=== PATIENT | male | born 1960 | race Caucasian/White ===

== ENCOUNTER 2016-11-11 09:16 | Emergency (ER) | payer SELFPAY ==
--- NOTE | 2016-11-11 11:04 | UC ---
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 - History of Current Complaint Chief Complaint: UCAbdominalPain Stated Complaint: ABD PAIN Time Seen by Provider: 11/11/16 10:56 Hx Obtained From: Patient Onset/Duration: Gradual Onset Timing: Intermittent Episodes Lasting: - lifting and twisting mvements Severity Initially: Mild Severity Currently: None Location: Other - umbillical Radiates: No Character: Aching - at work with lifting Aggravating Factor(s):: Movement Alleviating Factor(s): Rest Associated Signs And Symptoms: Positive: Negative - Allergies/Home Medications Allergies/Adverse Reactions: Allergies Allergy/AdvReac Type Severity Reaction Status Date / Time No Known Allergies Allergy Verified 01/24/12 07:47 PMH/Surg Hx/FS Hx/Imm Hx Previously Healthy: Yes - Surgical History Surgical History: None - Family History Known Family History: Positive: None Family History: no reported cardiovascular issues in family lineage - Social History Occupation: Employed Full-time Lives: With Family Alcohol Use: Rare Substance Use Type: None Smoking Status (MU): Former Smoker Review of Systems Constitutional: Negative Skin: Negative Eyes: Negative ENT: Negative Respiratory: Negative Cardiovascular: Negative Gastrointestinal: Negative Genitourinary: Negative Motor: Negative Neurovascular: Negative Musculoskeletal: Negative Neurological: Negative Psychological: Negative All Other Systems Reviewed And Are Negative: Yes Physical Exam Triage Information Reviewed: Yes Appearance: Well-Appearing, No Pain Distress, Well-Nourished Vital Signs: Initial Vital Signs Temp 99.3 F 11/11/16 09:24 Pulse 97 11/11/16 09:24 Resp 16 11/11/16 09:24 BP 143/90 11/11/16 09:24 Pulse Ox 100 11/11/16 09:24 Vital Signs Reviewed: Yes Eye Exam: Normal Eyes: Positive: Conjunctiva Clear ENT Exam: Normal ENT: Positive: Normal ENT inspection, Hearing grossly normal, TMs normal. Negative: Nasal congestion, Nasal drainage, Trismus, Muffled/hoarse voice Dental Exam: Normal Neck exam: Normal Neck: Positive: Supple, Nontender, No Lymphadenopathy Respiratory Exam: Normal Respiratory: Positive: Chest non-tender, Lungs clear, Normal breath sounds, No respiratory distress, No accessory muscle use Cardiovascular Exam: Normal Cardiovascular: Positive: RRR, No Murmur, Pulses Normal, Brisk Capillary Refill Abdominal Exam: Normal Abdomen Description: Positive: Nontender, No Organomegaly, Soft, Other: - small umbillical hernia Bowel Sounds: Positive: Present Musculoskeletal Exam: Normal Musculoskeletal: Positive: Strength Intact, ROM Intact, No Edema Neurological Exam: Normal Neurological: Positive: Alert, Muscle Tone Normal Psychological Exam: Normal Skin Exam: Normal Abd Pain Male Course/Dx - Course Course Of Treatment: follow with surgeon for hernia and primary care for blood pressure, avoid lifting or movements that put stress on abd. wall - Differential Dx/Clinical Impression Differential Diagnosis/HQI/PQRI: Ischemic Bowel, Other - umbilical hernia Provider Diagnoses: Umbilical hernia, high blood pressure without diagnosis of hypertension Discharge - Discharge Plan Condition: Stable Disposition: HOME Patient Education Materials: Umbilical Hernia (ED), DASH Eating Plan (ED), Hypertension (ED) Forms: *Work Release Referrals: [facility]IAN REFERRAL [Outside] - 2 Weeks Raghavendra Wilson MD [Medical Doctor] - 3 Days
[2016-11-11 11:24] VITALS: BP 130/96
== END 2016-11-11 11:24 | disposition home or self-care (01) ==
LOC: UCEAST 09:16
DX: K42.9 Umbilical hernia without obstruction or gangrene (principal); R03.0 Elevated blood-pressure reading, without diagnosis of hypertension; Z87.891 Personal history of nicotine dependence
CPT/HCPCS: 99202; G0463

== ENCOUNTER 2017-09-19 07:13 | Emergency (ER) | payer SELFPAY ==
[2017-09-19 07:25] VITALS: BP 143/95
--- NOTE | 2017-09-19 08:07 | UC ---
General HPI - HPI Summary HPI Summary: 57 yo c/o progressive back pain since yesterday afternoon. Stood up from couch , and felt pain in R lower back. No p/d/w. No b/b dysfunction. 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 Has not had sign sx since then. No fever / chills. No rash. Does not have a pcp yet. Declines imaging. - History of Current Complaint Chief Complaint: UCBackPain Stated Complaint: BACK PAIN Time Seen by Provider: 09/19/17 07:48 Hx Obtained From: Patient Pain Intensity: 8 - Allergy/Home Medications Allergies/Adverse Reactions: Allergies Allergy/AdvReac Type Severity Reaction Status Date / Time No Known Allergies Allergy Verified 09/19/17 07:26 PMH/Surg Hx/FS Hx/Imm Hx Previously Healthy: Yes - Surgical History Surgical History: Yes Surgery Procedure, Year, and Place: cyst removed from neck area - Family History Known Family History: Positive: None Family History: no reported cardiovascular issues in family lineage - Social History Alcohol Use: Rare Substance Use Type: None Smoking Status (MU): Former Smoker Review of Systems Constitutional: Negative Skin: Negative Eyes: Negative ENT: Negative Respiratory: Negative Cardiovascular: Negative Gastrointestinal: Negative Genitourinary: Negative Motor: Other - see hpi Neurovascular: Other - see hpi Musculoskeletal: Arthralgia Neurological: Other - see hpi Psychological: Negative Is Patient Immunocompromised?: No All Other Systems Reviewed And Are Negative: Yes Physical Exam Triage Information Reviewed: Yes Appearance: Well-Nourished Vital Signs: Initial Vital Signs Temp 97 F 09/19/17 07:22 Pulse 97 09/19/17 07:22 Resp 16 09/19/17 07:22 BP 143/95 09/19/17 07:22 Pulse Ox 99 09/19/17 07:22 Vital Signs Reviewed: Yes Eye Exam: Normal ENT Exam: Normal Neck exam: Normal - no c/o Respiratory Exam: Normal Respiratory: Positive: Chest non-tender, Lungs clear, Normal breath sounds, No respiratory distress Cardiovascular Exam: Normal Cardiovascular: Positive: RRR, No Murmur, Pulses Normal Abdominal Exam: Normal Abdomen Description: Positive: Nontender Musculoskeletal Exam: Other - tender R lower back lower lumber / upper sacrum. No point tender bone. + spasm. Able to ambulate, slowly. DTR 1+ pat and R Neurological Exam: Normal Psychological Exam: Normal - conversing easily and appropritately Skin Exam: Normal Course/Dx - Course Course Of Treatment: Declines imaging. Would appreciate muscle relax. - Differential Dx - Multi-Symptom Provider Diagnoses: Acute low back strain Discharge - Sign-Out/Discharge Documenting (check all that apply): Discharge/Admit/Transfer - Discharge Plan Condition: Stable Disposition: HOME Patient Education Materials: Low Back Strain (ED) Forms: *Work Release Referrals: No Primary Care Phys,NOPCP [Primary Care Provider] - [facility] [place] [facility]IAN REFERRAL [Outside] Additional Instructions: Follow up primary care physician as soon as you are able. Seek medical attention for worse or new problems in the meantime. - Billing Disposition and Condition Condition: STABLE Disposition: Home
== END 2017-09-19 08:12 | disposition home or self-care (01) ==
LOC: UCEAST 07:13
DX: S39.012A Strain of muscle, fascia and tendon of lower back, initial encounter (principal); X58.XXXA Exposure to other specified factors, initial encounter; Y93.9 Activity, unspecified; Y92.9 Unspecified place or not applicable; Z87.891 Personal history of nicotine dependence
CPT/HCPCS: 99212; G0463

== ENCOUNTER 2018-05-16 10:13 | Emergency (ER) | payer OTHER ==
--- NOTE | 2018-05-16 10:32 | UC ---
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 He is not having any sciatica. Has no bowel or bladder dysfunction. He states he has a history of herniated disks. His been taking ibuprofen. States that he has been able to lift in bed with mild to moderate pain. He states that he is able to resume full duty. - History of Current Complaint Stated Complaint: BACK INJURY Time Seen by Provider: 05/16/18 10:32 Hx Obtained From: Patient Onset/Duration: Sudden Onset, Lasting Weeks Timing: Constant Severity Initially: Moderate Severity Currently: Moderate Pain Intensity: 4 Back Pain: Is Discrete @ - see image Character: Dull, Aching, Throbbing Aggravating Factor(s): Movement, Bending Alleviating Factor(s): Rest Associated Signs And Symptoms: Positive: Negative Related History: Occupational Injury, Previous Back Injury - Allergies/Home Medications Allergies/Adverse Reactions: Allergies Allergy/AdvReac Type Severity Reaction Status Date / Time No Known Allergies Allergy Verified 05/16/18 10:31 PMH/Surg Hx/FS Hx/Imm Hx Previously Healthy: Yes - Surgical History Surgical History: Yes Surgery Procedure, Year, and Place: cyst removed from neck area - Family History Known Family History: Positive: Hypertension Family History: no reported cardiovascular issues in family lineage - Social History Alcohol Use: Rare Substance Use Type: None Smoking Status (MU): Former Smoker Review of Systems All Other Systems Reviewed And Are Negative: Yes Constitutional: Positive: Negative Skin: Positive: Negative Eyes: Positive: Negative ENT: Positive: Negative Respiratory: Positive: Negative Cardiovascular: Positive: Negative Gastrointestinal: Positive: Negative Genitourinary: Positive: Negative Motor: Positive: Negative Neurovascular: Positive: Negative Musculoskeletal: Positive: Myalgia Neurological: Positive: Negative Psychological: Positive: Negative Physical Exam Triage Information Reviewed: Yes Appearance: Well-Appearing, No Pain Distress, Well-Nourished Vital Signs Reviewed: Yes Eyes: Positive: Conjunctiva Clear ENT: Positive: Hearing grossly normal. Negative: Nasal congestion, Nasal drainage, Trismus, Muffled voice, Hoarse voice Neck: Positive: Supple, Nontender, No Lymphadenopathy Respiratory: Positive: Lungs clear, Normal breath sounds, No respiratory distress Cardiovascular: Positive: RRR, No Murmur Neurological: Positive: Alert, Other: - (-) SLR Psychological Exam: Normal Skin Exam: Normal Back Pain Course/Dx - Differential Dx/Diagnosis Provider Diagnosis: Acute lumbar myofascial strain Discharge - Sign-Out/Discharge Documenting (check all that apply): Patient Departure All imaging exams completed and their final reports reviewed: No Studies - Discharge Plan Condition: Stable Disposition: HOME Patient Education Materials: Low Back Strain (ED) Forms: *Work Release Referrals: [facility] [place] [facility] REFERR[facility] [Outside] - 2 Weeks (your blood pressure here was high ( 142/98). You need to find a MD to get it follow in 2-8 weeks) Kurt Delaney MD [Medical Doctor] - 2 Weeks (Recheck in 2 weeks if back not back to normal) Additional Instructions: advil or aleve - Billing Disposition and Condition Condition: STABLE Disposition: Home
[2018-05-16 10:39] VITALS: BP 142/98
== END 2018-05-16 11:04 | disposition home or self-care (01) ==
LOC: UCEAST 10:13
DX: S39.012A Strain of muscle, fascia and tendon of lower back, initial encounter (principal); Z87.39 Personal history of other diseases of the musculoskeletal system and connective tissue; Z87.891 Personal history of nicotine dependence; X58.XXXA Exposure to other specified factors, initial encounter; Y93.H1 Activity, digging, shoveling and raking; Y92.9 Unspecified place or not applicable
CPT/HCPCS: 99211; G0463

== ENCOUNTER → 2018-09-05 06:09 | Emergency (ER) | payer BC, OTHER ==
--- NOTE | 2018-09-05 06:37 | ED ---
Neck Pain - HPI Summary HPI Summary: 58 year old male presents with neck pain since last night. He states he was sitting on the couch watching tv and develop spasm on the right side of his neck. He states that is felt tight. he denies any fevers or chills. He states he took some Tylenol and feel asleep and the pain is pretty much gone. He states he is here for muscle relaxers and a work note. He denies any chest and shortness breath. Denies any headache. No change in vision. He states he has a history of neck pain in this location. denies any midline tenderness. Denies any injury. has full ROM of his neck now. work as a school janitor. - History of Current Complaint Chief Complaint: EDNeckComplaint Stated Complaint: NECK PAIN PER PT Time Seen by Provider: 09/05/18 06:28 Pain Intensity: 6 - Allergies/Home Medications Allergies/Adverse Reactions: Allergies Allergy/AdvReac Type Severity Reaction Status Date / Time No Known Allergies Allergy Verified 09/05/18 06:12 PMH/Surg Hx/FS Hx/Imm Hx Endocrine/Hematology History: Denies: Hx Anticoagulant Therapy Respiratory History: Denies: Hx Asthma - Surgical History Surgery Procedure, Year, and Place: cyst removed from neck area Infectious Disease History: No Infectious Disease History: Denies: Hx Clostridium Difficile, Hx Hepatitis, Hx Human Immunodeficiency Virus (HIV), Hx of Known/Suspected MRSA, Hx Shingles, Hx Tuberculosis, Hx Known/ Suspected VRE, Hx Known/Suspected VRSA, History Other Infectious Disease, Traveled Outside the [place] in Last 30 Days - Family History Known Family History: Positive: None, Hypertension Family History: no reported cardiovascular issues in family lineage - Social History Alcohol Use: Rare Substance Use Type: Reports: None Smoking Status (MU): Former Smoker Review of Systems Negative: Fever Negative: Chest Pain Negative: Shortness Of Breath Positive: Myalgia - neck pain All Other Systems Reviewed And Are Negative: Yes Physical Exam Triage Information Reviewed: Yes Vital Signs On Initial Exam: Initial Vitals Temp Pulse Resp BP Pulse Ox 96.7 F 73 16 150/83 95 09/05/18 06:10 09/05/18 06:10 09/05/18 06:10 09/05/18 06:10 09/05/18 06:10 Vital Signs Reviewed: Yes Appearance: Positive: Well-Appearing Skin: Positive: Warm, Dry Head/Face: Positive: Normal Head/Face Inspection Eyes: Positive: Normal, Conjunctiva Clear ENT: Positive: Pharynx normal Respiratory/Lung Sounds: Positive: Clear to Auscultation, Breath Sounds Present Cardiovascular: Positive: Normal, RRR Musculoskeletal: Positive: Strength/ROM Intact - neck, Other - no midline tenderness, good strength upper arms, good pulses Neurological: Positive: Normal Psychiatric: Positive: Normal Diagnostics - Vital Signs Vital Signs Temp Pulse Resp BP Pulse Ox 09/05/18 06:10 96.7 F 73 16 150/83 95 - Laboratory Lab Statement: Any lab studies that have been ordered have been reviewed, and results considered in the medical decision making process. Neck Course/Dx - Course Course Of Treatment: 58 year old male presents with neck pain since last night. He states he was sitting on the couch watching tv and develop spasm on the right side of his neck. He states that is felt tight. he denies any fevers or chills. He states he took some Tylenol and feel asleep and the pain is pretty much gone. He states he is here for muscle relaxers and a work note. He denies any chest and shortness breath. Denies any headache. No change in vision. He states he has a history of neck pain in this location. denies any midline tenderness. Denies any injury. has full ROM of his neck now. on exam tenderness over sides of neck. full ROM. neurovascular intact. patient declined any imaging. wants to try short course of muscle relaxers and will establish care with primary to follow up. patient understand and agrees with plan. - Diagnoses Differential Dx/HQI/PQRI: Positive: Sprain, Strain, Torticollis Provider Diagnoses: Neck pain Discharge - Sign-Out/Discharge Documenting (check all that apply): Patient Departure Patient Received Moderate/Deep Sedation with Procedure: No - Discharge Plan Condition: Good Disposition: HOME Prescriptions: Cyclobenzaprine TAB* [Flexeril 10 MG TAB*] 10 mg PO BID PRN #10 tab PRN Reason: Pain Patient Education Materials: Neck Pain (ED) Forms: *Work Release Referrals: [facility] [place] [facility] [Outside] Additional Instructions: Take muscle relaxers twice a day, start with at night because can make you drowsy Use Tylenol for pain every 6 hours ice/heat area, move as much as possible establish care with primary to follow up Return to ED if develop any new or worsening symptoms - Billing Disposition and Condition Condition: GOOD Disposition: Home
[2018-09-05 06:51] VITALS: BP 153/73
== END | disposition home or self-care (01) ==
LOC: ED 06:09
DX: M54.2 Cervicalgia (principal)
CPT/HCPCS: 99282

== ENCOUNTER 2019-02-11 08:10 | Emergency (ER) | payer BC ==
[2019-02-11 08:17] VITALS: BP 132/85
[2019-02-11 08:37] LABS: Influenza A Molecular NEGATIVE (Negative); Influenza B Molecular NEGATIVE (Negative)
--- NOTE | 2019-02-11 08:56 | UC ---
Throat Pain/Nasal Jeffery HPI - HPI Summary HPI Summary: 58-year-old male comes in with a chief complaint of upper respiratory tract infection symptoms for 3 days. Patient with runny nose cough sore throats body aches. He is band taking [id number] medications which helped some with the symptoms but overall he is getting worse and he feels very tired and fatigued. He tried to work today and he felt too sick to be able to work. Denies any chest congestion or shortness of breath. - History of Current Complaint Chief Complaint: UCGeneralIllness Stated Complaint: COLD SWEATS, HEADACHE, AND STUFFINESS Time Seen by Provider: 02/11/19 08:27 Pain Intensity: 5 - Allergies/Home Medications Allergies/Adverse Reactions: Allergies Allergy/AdvReac Type Severity Reaction Status Date / Time No Known Allergies Allergy Verified 02/11/19 08:17 PMH/Surg Hx/FS Hx/Imm Hx Previously Healthy: Yes Other History Of: Negative For: Anticoagulant Therapy - Surgical History Surgical History: Yes Surgery Procedure, Year, and Place: cyst removed from neck area - Family History Known Family History: Positive: None, Hypertension Family History: no reported cardiovascular issues in family lineage - Social History Alcohol Use: Rare Substance Use Type: None Smoking Status (MU): Former Smoker Review of Systems All Other Systems Reviewed And Are Negative: Yes Constitutional: Positive: Fatigue, Other - SEE HPI Skin: Positive: Negative Eyes: Positive: Blurred Vision ENT: Positive: Sore Throat, Ear Ache, Nasal Discharge, Sinus Congestion Respiratory: Positive: Negative Cardiovascular: Positive: Negative Gastrointestinal: Positive: Negative Motor: Positive: Negative Neurovascular: Positive: Negative Musculoskeletal: Positive: Negative Neurological: Positive: Negative Psychological: Positive: Negative Is Patient Immunocompromised?: No Physical Exam Triage Information Reviewed: Yes Appearance: No Pain Distress, Well-Nourished, Ill-Appearing - MILD Vital Signs: Initial Vital Signs Temp 98.4 F 02/11/19 08:11 Pulse 100 02/11/19 08:11 Resp 20 02/11/19 08:11 BP 132/85 02/11/19 08:11 Pulse Ox 98 02/11/19 08:11 Vital Signs Reviewed: Yes Eye Exam: Normal Eyes: Positive: Conjunctiva Clear ENT: Positive: Pharyngeal erythema, Nasal congestion, Nasal drainage, TMs normal Neck: Positive: Supple Respiratory: Positive: Lungs clear, Normal breath sounds, No respiratory distress Cardiovascular: Positive: RRR Musculoskeletal: Positive: Strength Intact, ROM Intact Neurological: Positive: Alert, Muscle Tone Normal Psychological: Positive: Age Appropriate Behavior Skin Exam: Normal Throat Pain/Nasal Course/Dx - Course Course Of Treatment: DISCUSSED VIRAL VERSES BACTERIAL INFECTIONS AND THE ROLE OF ANTIBIOTICS. THE PATIENT PREFERS TO BE ON ANTIBIOTICS AT THIS TIME. - Differential Dx/Diagnosis Provider Diagnosis: Upper respiratory infection Discharge ED - Sign-Out/Discharge Documenting (check all that apply): Patient Departure All imaging exams completed and their final reports reviewed: No Studies - Discharge Plan Condition: Stable Disposition: HOME Prescriptions: Amoxicillin PO (*) [Amoxicillin 875 MG (*)] 875 mg PO BID #20 tab Patient Education Materials: Upper Respiratory Infection (ED) Forms: *Work Release Referrals: [facility] [place] [facility] REFERRAL [Outside] Additional Instructions: FOLLOW UP WITH YOUR DOCTOR IF NOT COMPLETELY IMPROVED. GET RECHECKED SOONER IF YOUR CONDITION WORSENS OR ANY QUESTIONS OR CONCERNS. - Billing Disposition and Condition Condition: STABLE Disposition: Home
== END 2019-02-11 09:00 | disposition home or self-care (01) ==
LOC: UCEAST 08:10
DX: J06.9 Acute upper respiratory infection, unspecified (principal); H53.8 Other visual disturbances; H92.09 Otalgia, unspecified ear; Z87.891 Personal history of nicotine dependence
CPT/HCPCS: 99212; G0463

== ENCOUNTER 2019-03-19 10:00 | Emergency (ER) | payer BC ==
[2019-03-19 10:17] VITALS: BP 152/98
--- NOTE | 2019-03-19 10:40 | UC ---
Cardiac HPI - HPI Summary HPI Summary: ONSET OF SHARP MIDSTERNAL CHEST PAIN THIS MORNING AROUND 6 AM. NOT WORSE WITH EXERTION. DENIES SHORTNESS OF BREATH, NAUSEA, SWEATS. 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 PAIN HAS BEEN INTERMITTENT AND IS NOT CURRENTLY PRESENT. STRONG FAMILY HISTORY OF CARDIAC DISEASE. - History of Current Complaint Chief Complaint: UCChestPain Stated Complaint: CHESTPAIN Time Seen by Provider: 03/19/19 10:12 Hx Obtained From: Patient Onset/Duration: Sudden Onset, Lasting Hours Timing: Intermittent Episodes Lasting: Initial Severity: Moderate Current Severity: Moderate Pain Intensity: 4 Chest Pain Location: Mid Sternal Character: Sharp/Stabbing - Allergy/Home Medications Allergies/Adverse Reactions: Allergies Allergy/AdvReac Type Severity Reaction Status Date / Time No Known Allergies Allergy Verified 03/19/19 10:17 PMH/Surg Hx/FS Hx/Imm Hx Previously Healthy: Yes Other History Of: Negative For: Anticoagulant Therapy - Surgical History Surgical History: Yes Surgery Procedure, Year, and Place: cyst removed from neck area - Family History Known Family History: Positive: Cardiac Disease, Hypertension - Social History Alcohol Use: Rare Substance Use Type: None Smoking Status (MU): Former Smoker Review of Systems All Other Systems Reviewed And Are Negative: Yes Constitutional: Positive: Fatigue ENT: Positive: Negative Respiratory: Positive: Negative Cardiovascular: Positive: Chest Pain Gastrointestinal: Positive: Negative Musculoskeletal: Positive: Negative Physical Exam Triage Information Reviewed: Yes Appearance: Well-Appearing, No Pain Distress, Well-Nourished Vital Signs: Initial Vital Signs Temp 97.5 F 03/19/19 10:12 Pulse 84 03/19/19 10:12 Resp 20 03/19/19 10:12 BP 152/98 03/19/19 10:12 Pulse Ox 95 03/19/19 10:12 Vital Signs Reviewed: Yes Eyes: Positive: Conjunctiva Clear ENT: Positive: Hearing grossly normal Neck: Positive: Supple, Nontender, No Lymphadenopathy, Other: - NO CAROTID BRUITS Respiratory Exam: Normal Cardiovascular Exam: Normal Abdomen Description: Positive: Soft Musculoskeletal: Positive: No Edema Neurological: Positive: Alert Psychological: Positive: Age Appropriate Behavior Skin: Negative: Rashes Diagnostics - EKG Cardiac Rate: NL - 94BPM Cardiac Rhythm: Sinus: Normal Ectopy: None ST Segment: Normal - Assessment/Plan Course Of Treatment: PT OFFERED TRANSPORT TO THE ER BY AMBULANCE BUT DECLINES. ADVISED THAT BY NOT TRAVELING IN A MONITORED SETTING HE COULD BE RISKING WORSENING OF HIS CONDITION THAT COULD POSE A THREAT TO HIS LIFE, HEALTH AND MEDICAL SAFETY. HE VERBALIZES UNDERSTANDING AND CONTINUES TO DECLINE AMBULANCE TRANSFER. - Clinical Impression Provider Diagnosis: Chest pain Discharge ED - Sign-Out/Discharge Documenting (check all that apply): Patient Departure All imaging exams completed and their final reports reviewed: No Studies - Discharge Plan Condition: Stable Disposition: TRANS HIGHER LVL OF CARE FAC Patient Education Materials: Chest Pain (ED) Referrals: No Primary Care Phys,NOPCP [Primary Care Provider] - Additional Instructions: GO DIRECT[place] [facility] [place] FOR FURTHER EVALUATION. YOU HAVE DECLINED TRANSFER TO THE ER BY AMBULANCE. BE ADVISED THAT BY NOT TRAVELING IN A MONITORED SETTING YOU COULD BE RISKING WORSENING OF YOUR CONDITION THAT COULD POSE A THREAT TO YOUR LIFE, HEALTH AND MEDICAL SAFETY. - Billing Disposition and Condition Condition: STABLE Disposition: Trans Higher Lvl of Care Fac
== END 2019-03-19 10:36 | disposition short-term general hospital (02) ==
LOC: UCEAST 10:00
DX: R07.89 Other chest pain (principal); R53.83 Other fatigue; Z87.891 Personal history of nicotine dependence
CPT/HCPCS: 99212; G0463

== ENCOUNTER 2019-03-19 11:04 | Emergency (ER) | payer BC ==
[2019-03-19] MEDS ORDERED: Aspirin 81 mg CHEW TAB* 81 MG TAB.CHEW PO ONE (11:18)
--- NOTE | 2019-03-19 11:35 | ED ---
HPI Chest Pain - HPI Summary HPI Summary: This pt is a 59 y/o male presenting to [facility] c/o chest pain today. Pt reports he was shoveling snow yesterday for 5-6 hours. He states this morning when he woke up at 0600 he had chest pain, that lasted 2-3 seconds and then resolved on its own. Pt notes he then had a second episode of chest pain that also resolved after 2-3 seconds. He describes chest pain as pins and needles that is nonradiating. Currently he denies any chest pain. Denies SOB, palpitations, abd pain, nausea, vomiting, fever. Denies any PMHx. - History of Current Complaint Chief Complaint: EDChestPainROMI Time Seen by Provider: 03/19/19 11:17 Hx Obtained From: Patient Onset/Duration: Started Hours Ago, Resolved Timing: Lasting Seconds - 2-3 seconds at a time Initial Severity: Moderate Current Severity: None Pain Intensity: 0 Pain Scale Used: 0-10 Numeric Chest Pain Location: Diffuse Chest Pain Radiates: No Character: Other: - pins and needles Aggravating Factor(s): Nothing Alleviating Factor(s): Nothing Associated Signs and Symptoms: Positive: Chest Pain. Negative: Shortness of Breath, Fever, Chills, Nausea, Palpitations, Abdominal Pain, Vomiting - Allergy/Home Medications Allergies/Adverse Reactions: Allergies Allergy/AdvReac Type Severity Reaction Status Date / Time No Known Allergies Allergy Verified 03/19/19 10:17 Home Medications: Home Medications NK [No Home Medications Reported] 03/19/19 [History Confirmed 03/19/19] PMH/Surg Hx/FS Hx/Imm Hx Endocrine/Hematology History: Denies: Hx Anticoagulant Therapy, Hx Diabetes Cardiovascular History: Denies: Hx Hypertension Respiratory History: Denies: Hx Asthma - Surgical History Surgery Procedure, Year, and Place: cyst removed from neck area Infectious Disease History: No Infectious Disease History: Denies: Hx Clostridium Difficile, Hx Hepatitis, Hx Human Immunodeficiency Virus (HIV), Hx of Known/Suspected MRSA, Hx Shingles, Hx Tuberculosis, Hx Known/ Suspected VRE, Hx Known/Suspected VRSA, History Other Infectious Disease, Traveled Outside the [place] in Last 30 Days - Family History Known Family History: Positive: Cardiac Disease, Hypertension Family History: no reported cardiovascular issues in family lineage - Social History Alcohol Use: Rare Substance Use Type: Reports: None Smoking Status (MU): Former Smoker Review of Systems Negative: Fever, Chills Positive: Chest Pain. Negative: Palpitations Negative: Shortness Of Breath Negative: Abdominal Pain, Vomiting, Nausea All Other Systems Reviewed And Are Negative: Yes Physical Exam - Summary Physical Exam Summary: GENERAL: Patient is a well-developed and nourished male who is lying comfortable in the stretcher. Patient is not in any acute respiratory distress. HEAD AND FACE: No signs of trauma. No ecchymosis, hematomas or skull depressions. No sinus tenderness. EYES: PERRLA, EOMI x 2, No injected conjunctiva, no nystagmus. EARS: Hearing grossly intact. Ear canals and tympanic membranes are within normal limits. MOUTH: Oropharynx within normal limits. NECK: Supple, trachea is midline, no adenopathy, no JVD, no carotid bruit, no c- spine tenderness, neck with full ROM. CHEST: Symmetric, no tenderness at palpation LUNGS: Clear to auscultation bilaterally. No wheezing or crackles. CVS: Regular rate and rhythm, S1 and S2 present, no murmurs or gallops appreciated. ABDOMEN: Soft, non-tender. No signs of distention. No rebound no guarding, and no masses palpated. Bowel sounds are normal. EXTREMITIES: FROM in all major joints, no edema, no cyanosis or clubbing. NEURO: Alert and oriented x 3. No acute neurological deficits. Speech is normal and follows commands. SKIN: Dry and warm Triage Information Reviewed: Yes Vital Signs On Initial Exam: Initial Vitals Temp Pulse Resp BP Pulse Ox 98 F 95 16 133/85 94 03/19/19 11:12 03/19/19 11:12 03/19/19 11:12 03/19/19 11:12 03/19/19 11:12 Vital Signs Reviewed: Yes Procedures - Sedation Patient Received Moderate/Deep Sedation with Procedure: No Diagnostics - Vital Signs Vital Signs Temp Pulse Resp BP Pulse Ox 03/19/19 11:12 98 F 95 16 133/85 94 - Laboratory Result Diagrams: 03/19/19 11:23 03/19/19 11:23 Lab Statement: Any lab studies that have been ordered have been reviewed, and results considered in the medical decision making process. - Radiology Chest XR Radiology Interpretation Completed By: Radiologist Summary of Radiographic Findings: IMPRESSION: No active cardiopulmonary disease. Dr. Barros has reviewed this report. - EKG 10:04 Cardiac Rate: NL - at 94 bpm EKG Rhythm: Sinus Rhythm Summary of EKG Findings: EKG at 1004 shows normal sinus rhythm at a rate of 94 bpm. Chest Pain Course/Dx - Course Assessment/Plan: This pt is a 59 y/o male presenting to [facility] c/o chest pain today. Pt reports he was shoveling snow yesterday for 5-6 hours. He states this morning when he woke up at 0600 he had chest pain, that lasted 2-3 seconds and then resolved on its own. Pt notes he then had a second episode of chest pain that also resolved after 2-3 seconds. He describes chest pain as pins and needles that is nonradiating. Currently he denies any chest pain. Denies SOB, palpitations, abd pain, nausea, vomiting, fever. Blood work without any significant abnormality except for glucose of 232. Two troponins 4 hours apart are 0.00. EKG shows no ST elevations. Chest x-ray impression: No active cardiopulmonary disease. HEART score is equal to 1. Patient reports that all symptoms have resolved. Because the patient has no significant comorbidities and no family history of cardiovascular disease at his age the patient will be discharged home with follow up of PMD. I discussed all the findings and test results with the patient. Patient was instructed to return to the emergency room immediately if any of the symptoms return or worsen. Patient understands and agrees. Plan of care was discussed with the patient and patient understands and agrees. All questions were answered at patient satisfaction. There were no further complaints or concerns. PE before discharge: CVS: S1 and S2 present. No murmurs appreciated. Abdominal exam before discharge: Soft, non- tender. No signs of distention. No rebound no guarding, and no masses palpated. Bowel sounds are normal. Patient is alert and oriented x 3. Patient is hemodynamically stable. - Chest Pain Differential Diagnosis/HQI/PQRI: Acute NM, ACS, Angina, CHF, Chest Wall, GI Disease, Lower Respiratory Infection, Pulmonary Edema - Diagnoses Provider Diagnoses: Chest pain Discharge ED - Sign-Out/Discharge Documenting (check all that apply): Patient Departure - Discharge home - Discharge Plan Condition: Stable Disposition: HOME Patient Education Materials: Chest Pain (ED) Referrals: [facility] [Outside] Additional Instructions: FOLLOW UP WITH YOUR PRIMARY CARE PROVIDER IN 2-3 DAYS. RETURN TO THE EMERGENCY DEPARTMENT FOR ANY WORSENING OR NEW SYMPTOMS. - Billing Disposition and Condition Condition: STABLE Disposition: Home - Attestation Statements Document Initiated by Lambert: Yes Documenting Scribe: Tanika Washington Provider For Whom Mannye is Documenting (Include Credential): Anselmo Barros MD Scribe Attestation: Tanika Maldonado, scribed for Anselmo Barros MD on 03/20/19 at 1843. Scribe Documentation Reviewed: Yes Provider Attestation: The documentation as recorded by the Tanika gustafson accurately reflects the service I personally performed and the decisions made by me, Anselmo Barros MD Status of Scribe Document: Viewed
[2019-03-19 11:40] LABS: ABS Basophils 0.1 10^3/ul (0-0.2); ABS Eosinophils 0.1 10^3/ul (0-0.6); ABS Lymphocytes 1.9 10^3/ul (1.0-4.8); ABS Monocytes 0.4 10^3/ul (0-0.8); ABS Neutrophils 6.1 10^3/ul (1.5-7.7); Eosinophil % 0.6 %; Hematocrit 42 % (42-52); Hemoglobin 14.5 g/dL (14.0-18.0); Lymphocyte % 21.9 %; Mean Corpuscular HGB Conc 35 g/dL (31-36); Mean Corpuscular Hemoglobin 29 pg (27-31); Mean Corpuscular Volume 85 fL (80-94); Mean Platelet Volume 6.9 fL (7.4-10.4); Nucleated Red Blood Cells % 0.5; Platelet Count 316 10^3/uL (150-450); Red Blood Count 4.93 10^6 /uL (4.18-5.48); Red Cell Distribution Width 13 % (10-15); White Blood Count 8.4 10^3/uL (3.5-10.8)
[2019-03-19 11:45] LABS: INR 1.04 (0.82-1.09)
[2019-03-19 11:51] LABS: Albumin 4.1 g/dL (3.2-5.2); Albumin/Globulin Ratio 1.4 (1-3); BUN/Creatinine Ratio 23.1 (8-20); Calcium 9.4 mg/dL (8.6-10.3); EGFR African American 87.9 (>60); EGFR Non-African American 72.6 (>60); Magnesium 1.9 mg/dL (1.9-2.7); Potassium 3.8 mmol/L (3.5-5.0); Total Bilirubin 0.7 mg/dL (0.2-1.0); Total Protein 7.1 g/dL (6.4-8.9)
[2019-03-19 11:56] LABS: CKMB ng/mL 4.3 ng/mL (0.6-6.3)
[2019-03-19 12:06] LABS: TSH (Thyroid Stimulating Horm) 1.3 mcIU/mL (0.34-5.60)
[2019-03-19 15:28] VITALS: BP 127/82
== END 2019-03-19 15:32 | disposition home or self-care (01) ==
LOC: ED 11:04
DX: R07.9 Chest pain, unspecified (principal); Z87.891 Personal history of nicotine dependence
CPT/HCPCS: 36415; 71045; 80053; 82550; 82553; 83735; 83880; 84443; 84484; 85025; 85610; 93005; 99283; A9270-GY

== ENCOUNTER 2019-04-30 08:29 | Emergency (ER) | payer BC ==
[2019-04-30 10:19] VITALS: BP 132/98
--- NOTE | 2019-05-01 10:27 | ED ---
Abdominal Pain/Male - HPI Summary HPI Summary: This patient is a 59-year-old otherwise healthy male presenting to the ED with rectal pain. States he had a large bowel movement this morning and had bright red blood and now is having pain. He states the past few days he has "felt something" to the area. Never been diagnosed with hemorrhoids in the past. He states over the past few days, he has not had any pain. After a bowel movement today, he now endorses an 8/10 pain to the area. He denies any bleeding currently. He denies any history of anemia. Patient states he feels otherwise well, denying any abdominal pain. History of constipation. Bleeding is well controlled. NO urinary symptoms. No fevers, sweats or chills. - History of Current Complaint Chief Complaint: EDRectalPain Stated Complaint: RECTAL BLEEDING PER PT Time Seen by Provider: 04/30/19 08:43 Hx Obtained From: Patient Onset/Duration: Sudden Onset Timing: Constant Severity Initially: Severe Severity Currently: Severe Pain Intensity: 7 Pain Scale Used: 0-10 Numeric Radiates: No - Allergies/Home Medications Allergies/Adverse Reactions: Allergies Allergy/AdvReac Type Severity Reaction Status Date / Time No Known Allergies Allergy Verified 04/30/19 08:42 PMH/Surg Hx/FS Hx/Imm Hx Previously Healthy: Yes Endocrine/Hematology History: Denies: Hx Anticoagulant Therapy, Hx Diabetes Cardiovascular History: Denies: Hx Hypertension Respiratory History: Denies: Hx Asthma - Surgical History Surgery Procedure, Year, and Place: cyst removed from neck area - Immunization History Hx Pertussis Vaccination: No Immunizations Up to Date: Yes Infectious Disease History: No Infectious Disease History: Denies: Hx Clostridium Difficile, Hx Hepatitis, Hx Human Immunodeficiency Virus (HIV), Hx of Known/Suspected MRSA, Hx Shingles, Hx Tuberculosis, Hx Known/ Suspected VRE, Hx Known/Suspected VRSA, History Other Infectious Disease, Traveled Outside the [place] in Last 30 Days - Family History Known Family History: Positive: Cardiac Disease, Hypertension Family History: no reported cardiovascular issues in family lineage - Social History Occupation: Employed Full-time Lives: With Family Alcohol Use: Rare Hx Substance Use: No Substance Use Type: Reports: None Smoking Status (MU): Former Smoker Review of Systems Negative: Fever, Chills, Fatigue, Skin Diaphoresis Negative: Shortness Of Breath, Cough Genitourinary: Negative Positive: no symptoms reported, see HPI Negative: Arthralgia, Myalgia Skin: Negative Positive: Other - hemorrhoid Neurological: Negative All Other Systems Reviewed And Are Negative: Yes Physical Exam Triage Information Reviewed: Yes Vital Signs On Initial Exam: Initial Vitals Temp Pulse Resp BP Pulse Ox 97.4 F 86 18 145/96 97 04/30/19 08:32 04/30/19 08:32 04/30/19 08:32 04/30/19 08:32 04/30/19 08:32 Vital Signs Reviewed: Yes Appearance: Positive: Well-Appearing, Well-Nourished Skin: Positive: Skin Color Reflects Adequate Perfusion Head/Face: Positive: Normal Head/Face Inspection Neck: Positive: Supple Respiratory/Lung Sounds: Positive: Clear to Auscultation, Breath Sounds Present Cardiovascular: Positive: Normal Male Genital Exam: Positive: Other - hemorroid - purple hue, not thrombosed Neurological: Positive: Sensory/Motor Intact, Alert, Oriented to Person Place, Time, Speech Normal Psychiatric: Positive: Affect/Mood Appropriate Procedures - Sedation Patient Received Moderate/Deep Sedation with Procedure: No Diagnostics - Vital Signs Vital Signs Temp Pulse Resp BP Pulse Ox 04/30/19 10:17 97.5 F 77 16 132/98 96 04/30/19 08:32 97.4 F 86 18 145/96 97 - Laboratory Lab Statement: Any lab studies that have been ordered have been reviewed, and results considered in the medical decision making process. Abdominal Pain Male Course/Dx - Course Course Of Treatment: Pt evaluated for rectal pain. On rectal exam, patient has R sided external hemorroid. Hemorrhoid has a purple hue, and is tender. No tenderness around the hemorrhoid and no evidence of internal hemorrhoids. Anoscopy not performed. No thrombosis. No bleeding. Pt is given conservative management and will continue preparation H, suppositories, stool softeners and will see surgery. F/u given. - Diagnoses Provider Diagnoses: Hemorrhoids Discharge ED - Sign-Out/Discharge Documenting (check all that apply): Patient Departure - Discharge Plan Condition: Stable Disposition: HOME Prescriptions: Hydrocortisone SUPP* [Anusol HC Supp*] 25 mg .SEE ORDER BID #10 supp MDD 2 traMADol TAB* [Ultram*] 50 mg PO Q8H PRN #12 tab MDD 3 PRN Reason: Pain Patient Education Materials: Hemorrhoids (ED), Rectal Bleeding (ED) Forms: *Work Release Referrals: No Primary Care Phys,NOPCP [Primary Care Provider] - Misti Ch MD [Medical Doctor] - Additional Instructions: Hemorrhoids are enlarged or swollen veins in the lower rectum. The most common symptoms of hemorrhoids are rectal bleeding, itching, and pain. You may be able to see or feel hemorrhoids around the outside of the anus, or they may be hidden from view, inside the rectum. Fiber supplements Increasing fiber in your diet is one of the best ways to soften your stools. Fiber is found in fruits and vegetables. The recommended amount of dietary fiber is 20 to 35 grams per day. Several fiber supplements are available, including psyllium (sample brand names : Konsyl, Metamucil), methylcellulose (sample brand name: Citrucel), polycarbophil (sample brand name: FiberCon), and wheat dextrin (Benefiber). Start with a small amount and increase slowly to avoid side effects. Laxatives If increasing fiber does not relieve your constipation, or if side effects of fiber are intolerable, you can try a laxative. Senna (over the counter) will help as a stool softener - DO NOT STRAIN. Many people worry about taking laxatives regularly, fearing that they will not be able to have a bowel movement if the laxative is stopped. Laxatives are not "addictive" and using laxatives does not increase your risk of constipation in the future. Instead, using a laxative may actually prevent long-term problems with constipation. Warm sitz baths During a sitz bath, you soak the rectal area in warm water for 10 to 15 minutes two to three times daily. Sitz baths are available in most drugstores. It is also possible to use a bathtub and sit in 2 to 3 inches of warm water. Do not add soap, bubble bath, or other additives in the water. Sitz baths work by improving blood flow and relaxing the muscle around the anus, called the internal anal sphincter. Topical treatments Various creams and suppositories are available to treat hemorrhoids, and many are available without a prescription. Pain-relieving creams and hydrocortisone rectal suppositories may help relieve pain, inflammation, and itching, at least temporarily. Continue to use preparation H as directed. You should not use hemorrhoid creams and suppositories, particularly hydrocortisone, for longer than one week, unless your healthcare provider approves. Please follow up with surgeon. I have given you a follow up. Suppository (prescribed) - twice daily. - Billing Disposition and Condition Condition: STABLE Disposition: Home
== END 2019-04-30 10:17 | disposition home or self-care (01) ==
LOC: ED 08:29
DX: K62.5 Hemorrhage of anus and rectum (principal); K64.9 Unspecified hemorrhoids; Z87.891 Personal history of nicotine dependence
CPT/HCPCS: 99282

== ENCOUNTER 2019-05-21 08:44 | Emergency (ER) | payer BC ==
[2019-05-21 08:59] VITALS: BP 144/74
--- NOTE | 2019-05-21 09:53 | UC ---
Respiratory Complaint HPI - HPI Summary HPI Summary: 59 yo male presents with URI symptoms. He tells me that for the past week he has been having sinus pain/pressure/congestion, intermittently productive cough , and intermittent wheezing. He has been taking OTC theraflu and cold medicine with no relief. He also has been taking amoxicillin 875mg BID for the last 5 days from an old rx he had at home - no change in symptoms. He does not smoke. Has felt feverish at times, but has not taken his temperature. Denies sore throat, SOB, chest pain, abdominal pain, n/v. - History of Current Complaint Chief Complaint: UCGeneralIllness Stated Complaint: CHEST CONGESTION HEAD CONGESTION Time Seen by Provider: 05/21/19 09:53 Hx Obtained From: Patient Onset/Duration: Gradual Onset Severity Initially: Mild Severity Currently: Mild Pain Intensity: 3 Pain Scale Used: 0-10 Numeric - Allergies/Home Medications Allergies/Adverse Reactions: Allergies Allergy/AdvReac Type Severity Reaction Status Date / Time No Known Allergies Allergy Verified 05/21/19 08:59 PMH/Surg Hx/FS Hx/Imm Hx - Additional Past Medical History Additional PMH: None Other History Of: Negative For: Anticoagulant Therapy - Surgical History Surgical History: Yes Surgery Procedure, Year, and Place: cyst removed from neck area - Family History Known Family History: Positive: Cardiac Disease, Hypertension - Social History Occupation: Employed Full-time Lives: With Family Alcohol Use: Rare Substance Use Type: None Smoking Status (MU): Former Smoker Review of Systems All Other Systems Reviewed And Are Negative: No Constitutional: Positive: Negative Skin: Positive: Negative Eyes: Positive: Negative ENT: Positive: Nasal Discharge, Sinus Congestion, Sinus Pain/Tenderness Respiratory: Positive: Cough Cardiovascular: Positive: Negative Gastrointestinal: Positive: Negative Neurological: Positive: Negative Psychological: Positive: Negative Physical Exam - Summary Physical Exam Summary: GENERAL: NAD. WDWN. No pain distress. SKIN: No rashes, sores, lesions, or open wounds. HEENT: Head: AT/NC Eyes: EOM intact. Conjunctiva clear without inflammation or discharge. Ears: Hearing grossly normal. TMs intact, no bulging, erythema, or edema. Nose: Nasal mucosa mildly swollen and erythematous with yellow/ clear discharge. TTP maxillary and frontal sinus. Positive post nasal drip Throat: Posterior oropharynx without exudates, erythema, or tonsillar enlargement. Uvula midline. NECK: Supple. Nontender. No lymphadenopathy. CHEST: CTAB. Scant wheezing throughout. No accessory muscle use. Breathing comfortably and in no distress. CV: RRR. Pulses intact. NEURO: Alert. PSYCH: Age appropriate behavior. Triage Information Reviewed: Yes Vital Signs: Initial Vital Signs Temp 98.6 F 05/21/19 08:56 Pulse 96 05/21/19 08:56 Resp 16 05/21/19 08:56 BP 144/74 05/21/19 08:56 Pulse Ox 100 05/21/19 08:56 Vital Signs Reviewed: Yes Respiratory Course/Dx - Course Course Of Treatment: Sinusitis Bronchitis Advised to stop amoxicillin and, in the future, to take medications as prescribed at the time of rx. - Differential Dx/Diagnosis Provider Diagnosis: Sinusitis, Bronchitis Discharge ED - Sign-Out/Discharge Documenting (check all that apply): Patient Departure All imaging exams completed and their final reports reviewed: No Studies - Discharge Plan Condition: Stable Disposition: HOME Prescriptions: Albuterol HFA INHALER* [Ventolin HFA Inhaler*] 1 - 2 puff INH Q6H PRN #1 mdi PRN Reason: Wheezing Benzonatate CAP* [Tessalon 100 MG CAP*] 100 mg PO TID PRN #21 cap PRN Reason: Cough DOXYcycline CAP(*) [DOXYcycline 100MG CAP(*)] 100 mg PO BID #14 cap Patient Education Materials: Sinusitis (ED), Acute Bronchitis (ED) Forms: *Work Release Referrals: No Primary Care Phys,NOPCP [Primary Care Provider] - Additional Instructions: If you develop a fever, shortness of breath, chest pain, new or worsening symptoms - please call your PCP or go to the ED immediately. Your blood pressure was high at todays visit. Please see your primary provider within 4 weeks for recheck and re-evaluation. Stop taking the amoxicillin - Billing Disposition and Condition Condition: STABLE Disposition: Home
== END 2019-05-21 10:28 | disposition home or self-care (01) ==
LOC: UCEAST 08:44
DX: J40 Bronchitis, not specified as acute or chronic (principal); J32.9 Chronic sinusitis, unspecified; Z87.891 Personal history of nicotine dependence
CPT/HCPCS: 99212; G0463

== ENCOUNTER 2023-04-07 01:52 | Inpatient (IN) ==
[2023-04-07 02:33] LABS: Venous Bicarbonate HCO3 23.4 mmol/L (24-28)
[2023-04-07 02:38] LABS: ABS Lymphocytes 0.4 10^3/uL (1.0-4.8); ABS Monocytes 0.7 10^3/uL (0.0-1.1); ABS Neutrophils 6.4 10^3/uL (1.5-7.6); ABS Nucleated RBC 0.01 10^3/ul; Eosinophil % 0.4 %; Hematocrit 42.9 % (38-53); Hemoglobin 14.9 g/dL (13.2-16.3); Mean Corpuscular Hemoglobin 30.3 pg (27-33); Mean Corpuscular Hgb Conc 34.8 g/dL (31-36); Mean Corpuscular Volume 87.1 fL (80-97); Nucleated Red Blood Cells % 0.2 %/100WBC (0.0-0.8); Platelet Count 269 10^3/uL (150-450); Red Blood Count 4.93 10^6/uL (4.06-5.63); Red Cell Distribution Width 12.5 % (12-17); White Blood Count 7.6 10^3/uL (3.6-10.2)
[2023-04-07 02:54] LABS: Albumin 4.5 g/dL (3.2-5.2); Albumin/Globulin Ratio 1.5 (1-3); Calcium 9.2 mg/dL (8.6-10.3); Creatinine, Serum 1.14 mg/dL (0.67-1.17); Globulin 3.1 g/dL (2-4); Potassium 4.1 mmol/L (3.5-5.0); Total Bilirubin 0.8 mg/dL (0.2-1.0); Total Protein 7.6 g/dL (6.4-8.9); eGFR CKD-EPI 71.4 (>60)
[2023-04-07 03:02] LABS: INR 1.1 (0.83-1.13)
[2023-04-07 04:24] LABS: High Sensitivity Troponin 1 Hr 323 pg/mL (<20)
[2023-04-07] MEDS ORDERED: Dextrose 50% Syringe 50 ml 25 GM/50 ML SYRINGE IV PUSH PRN (05:16)
[2023-04-07] MEDS ORDERED: Remdesivir 100 mg Vial 200 MG in NS 0.9% 250 ml 210 ML IV ONE (05:18)
[2023-04-07] MEDS ORDERED: Ondansetron 4 mg VIAL 2 MG/ML 2 ml VIAL IV PRN (05:26)
[2023-04-07] MEDS ORDERED: Heparin 5000 UNITS/ML 1 mL VIAL IV SCH (06:00)
[2023-04-07 06:03] LABS: Activated Partial Thrombo Time 30.8 seconds (26.0-38.0); INR 1.1 (0.83-1.13)
[2023-04-07] MEDS: Heparin DRIP 25,000 UNITS BAG 25,000 UNITS/250 ML BAG IV SCH (07:16)
[2023-04-07 09:06] LABS: High Sensitivity Troponin 3 Hr 4344 pg/mL (<20)
[2023-04-07] MEDS ORDERED: Sulfur Hexaflouride MICROSPHR 25 MG VIAL ONE (09:12)
[2023-04-07 09:43] LABS: C Reactive Protein 25.44 mg/L (<8.01)
[2023-04-07 11:56] LABS: High Sensitivity Troponin 1 Hr 6991 pg/mL (<20)
[2023-04-07 12:33] LABS: Lithium < 0.16 mmol/L (0.6-1.2)
[2023-04-07 12:49] LABS: Free T3 3.33 pg/mL (2.5-3.9)
[2023-04-07 12:52] LABS: TSH Ultra Thyroid Stim Horm 2.03 mcIU/mL (0.34-5.60)
[2023-04-07 12:58] LABS: Free T4 0.75 ng/dL (0.61-1.12)
[2023-04-07] MEDS: Insulin GLARGINE 100 un/ml 10 ml VIAL SUBCUT SCH (21:02)
[2023-04-08] MEDS ORDERED: NS 0.9% 1000 ml BAG 1,000 ML IV SCH (06:00)
[2023-04-08] MEDS: Benzocaine/Menthol LOZ PO PRN ×2 (06:25→20:26)
[2023-04-08] MEDS: Heparin DRIP 25,000 UNITS BAG 25,000 UNITS/250 ML BAG IV SCH (07:22)
[2023-04-08 07:33] LABS: ABS Lymphocytes 1.3 10^3/uL (1.0-4.8); ABS Monocytes 0.9 10^3/uL (0.0-1.1); ABS Neutrophils 3.1 10^3/uL (1.5-7.6); ABS Nucleated RBC 0.01 10^3/ul; Eosinophil % 0.4 %; Hemoglobin 14.1 g/dL (13.2-16.3); Lymphocyte % 23.4 %; Mean Corpuscular Hgb Conc 34.5 g/dL (31-36); Mean Corpuscular Volume 86.9 fL (80-97); Mean Platelet Volume 7.3 fL (7.5-11.2); Nucleated Red Blood Cells % 0.2 %/100WBC (0.0-0.8); Platelet Count 246 10^3/uL (150-450); Red Blood Count 4.72 10^6/uL (4.06-5.63); Red Cell Distribution Width 12.4 % (12-17); White Blood Count 5.4 10^3/uL (3.6-10.2)
[2023-04-08 07:40] LABS: Activated Partial Thrombo Time 82.1 seconds (26.0-38.0); INR 1.21 (0.83-1.13)
[2023-04-08] MEDS ORDERED: Lidocaine 1% MPF 5 ML VIAL ONE (07:42)
[2023-04-08] MEDS ORDERED: fentaNYL 100 mcg/2 ml 50 MCG/ML VIAL ONE (07:42)
[2023-04-08] MEDS ORDERED: Iohexol 350 (CONTRAST) 200 ML MDV IV ONE (07:42)
[2023-04-08] MEDS ORDERED: Heparin 1,000 UNIT/ML 10 ml (10,000 UNITS) CATHLAB/DIALYSIS ONE (07:42)
[2023-04-08] MEDS ORDERED: Midazolam 5 mg/5 ml VIAL 1 mg/ml 5 ml VIAL (5 mg) ONE (07:42)
[2023-04-08] MEDS ORDERED: nitroGLYCERIN DRIP 25,000 MCG/250 ML BTL ONE (07:42)
[2023-04-08] MEDS ORDERED: Heparin 2 UNITS/ML 1000 mls 2,000 ML IV ONE (07:42)
[2023-04-08] MEDS ORDERED: niCARdipine 0.1MG/ML IVPREMIX 20 MG/200 ML BAG IV ONE (07:43)
[2023-04-08 07:50] LABS: Albumin 3.9 g/dL (3.2-5.2); Albumin/Globulin Ratio 1.4 (1-3); Calcium 8.4 mg/dL (8.6-10.3); Creatinine, Serum 1.12 mg/dL (0.67-1.17); Globulin 2.8 g/dL (2-4); Magnesium 1.9 mg/dL (1.9-2.7); Potassium 3.9 mmol/L (3.5-5.0); Total Bilirubin 0.6 mg/dL (0.2-1.0); Total Protein 6.7 g/dL (6.4-8.9); eGFR CKD-EPI 72.9 (>60)
[2023-04-08] MEDS ORDERED: Flumazenil 0.5 mg/5 ml 0.1 MG/ML 5 ml VIAL IV PRN (07:57)
[2023-04-08] MEDS ORDERED: Naloxone 0.4 mg VIAL 0.4 mg/ml 1 ml VIAL IV PUSH PRN (07:57)
[2023-04-08] MEDS ORDERED: fentaNYL 100 mcg/2 ml 50 MCG/ML VIAL IV SLOW PU ONE (07:57)
[2023-04-08] MEDS ORDERED: Midazolam 10 mg/10 ml VIAL 1 mg/ml 10 ml VIAL (10 mg) IV SLOW PU ONE (07:57)
[2023-04-08] MEDS ORDERED: Remdesivir 100 mg Vial 100 MG in NS 0.9% 250 ml 230 ML IV SCH (09:00)
[2023-04-08] MEDS: Enoxaparin 100 MG/ML SYR SUBCUT SCH ×2 (12:23→21:44)
[2023-04-08] MEDS: Insulin GLARGINE 100 un/ml 10 ml VIAL SUBCUT SCH (20:27)
[2023-04-09] MEDS: Benzocaine/Menthol LOZ PO PRN ×2 (04:58→17:42)
[2023-04-09 07:04] LABS: INR 1.21 (0.83-1.13)
[2023-04-09 07:10] LABS: Albumin 3.7 g/dL (3.2-5.2); Albumin/Globulin Ratio 1.4 (1-3); Calcium 8.4 mg/dL (8.6-10.3); Creatinine, Serum 1.01 mg/dL (0.67-1.17); Globulin 2.7 g/dL (2-4); Potassium 3.9 mmol/L (3.5-5.0); Total Bilirubin 0.5 mg/dL (0.2-1.0); Total Protein 6.4 g/dL (6.4-8.9); eGFR CKD-EPI 82.5 (>60)
[2023-04-09] MEDS ORDERED: Influenza vaccine *QUAD* *2023-24* 0.5 ML SYRINGE IM ONE (09:00)
[2023-04-09] MEDS ORDERED: Pneumococcal Vac 23-Polyvalent IM ONE (09:00)
[2023-04-09] MEDS ORDERED: Magnesium Hydroxide LIQ 30 ML UDC PO PRN (09:59)
[2023-04-09] MEDS: Polyethylene Glycol 3350 17 GM PACKET PO SCH (13:10)
[2023-04-09] MEDS: Enoxaparin 100 MG/ML SYR SUBCUT SCH ×2 (13:10→22:57)
[2023-04-09] MEDS: Insulin GLARGINE 100 un/ml 10 ml VIAL SUBCUT SCH (22:55)
[2023-04-10 06:38] LABS: INR 1.16 (0.83-1.13)
[2023-04-10 08:22] LABS: Albumin/Globulin Ratio 1.3 (1-3); Calcium 8.8 mg/dL (8.6-10.3); Creatinine, Serum 1.1 mg/dL (0.67-1.17); Potassium 4.3 mmol/L (3.5-5.0); Total Bilirubin 0.5 mg/dL (0.2-1.0); eGFR CKD-EPI 74.5 (>60)
[2023-04-10] MEDS: Polyethylene Glycol 3350 17 GM PACKET PO SCH (08:35)
[2023-04-10] MEDS: Enoxaparin 100 MG/ML SYR SUBCUT SCH ×2 (11:52→22:43)
[2023-04-10 11:57] LABS: ABS Eosinophils 0.2 10^3/uL (0.0-0.5); ABS Lymphocytes 1.8 10^3/uL (1.0-4.8); ABS Monocytes 0.5 10^3/uL (0.0-1.1); ABS Neutrophils 2.9 10^3/uL (1.5-7.6); ABS Nucleated RBC 0.03 10^3/ul; Eosinophil % 3.1 %; Hemoglobin 14.8 g/dL (13.2-16.3); Lymphocyte % 33.4 %; Mean Corpuscular Hemoglobin 29.9 pg (27-33); Mean Corpuscular Hgb Conc 34.4 g/dL (31-36); Mean Corpuscular Volume 86.8 fL (80-97); Mean Platelet Volume 7.9 fL (7.5-11.2); Nucleated Red Blood Cells % 0.5 %/100WBC (0.0-0.8); Platelet Count 267 10^3/uL (150-450); Red Blood Count 4.95 10^6/uL (4.06-5.63); Red Cell Distribution Width 12.6 % (12-17); White Blood Count 5.4 10^3/uL (3.6-10.2)
[2023-04-10] MEDS ORDERED: Prasugrel 10 mg TAB (NF) PO ONE (13:32)
[2023-04-10] MEDS: Insulin GLARGINE 100 un/ml 10 ml VIAL SUBCUT SCH (22:44)
[2023-04-11] MEDS ORDERED: NS 0.9% 1000 ml BAG 1,000 ML IV SCH (06:00)
[2023-04-11 06:57] LABS: INR 1.13 (0.83-1.13)
[2023-04-11] MEDS: Prasugrel 10 mg TAB (NF) PO SCH (07:25)
[2023-04-11] MEDS: Polyethylene Glycol 3350 17 GM PACKET PO SCH (07:35)
[2023-04-11 08:00] LABS: Albumin/Globulin Ratio 1.3 (1-3); Creatinine, Serum 0.99 mg/dL (0.67-1.17); Magnesium 2.1 mg/dL (1.9-2.7); Potassium 4.2 mmol/L (3.5-5.0); Total Bilirubin 0.6 mg/dL (0.2-1.0); eGFR CKD-EPI 84.5 (>60)
[2023-04-11] MEDS ORDERED: Heparin 2 UNITS/ML 1000 mls 3,000 ML IV ONE (08:12)
[2023-04-11] MEDS ORDERED: Heparin 1,000 UNIT/ML 10 ml (10,000 UNITS) CATHLAB/DIALYSIS ONE ×2 (08:12→09:06)
[2023-04-11] MEDS ORDERED: nitroGLYCERIN DRIP 25,000 MCG/250 ML BTL ONE (08:12)
[2023-04-11] MEDS ORDERED: Lidocaine 1% MPF 5 ML VIAL ONE (08:12)
[2023-04-11] MEDS ORDERED: Iohexol 350 (CONTRAST) 200 ML MDV IV ONE (08:13)
[2023-04-11] MEDS ORDERED: niCARdipine 0.1MG/ML IVPREMIX 20 MG/200 ML BAG IV ONE (08:13)
[2023-04-11] MEDS ORDERED: Flumazenil 0.5 mg/5 ml 0.1 MG/ML 5 ml VIAL IV PRN (08:23)
[2023-04-11] MEDS ORDERED: Naloxone 0.4 mg VIAL 0.4 mg/ml 1 ml VIAL IV PUSH PRN (08:23)
[2023-04-11] MEDS ORDERED: fentaNYL 100 mcg/2 ml 50 MCG/ML VIAL IV SLOW PU ONE (08:23)
[2023-04-11] MEDS ORDERED: Midazolam 10 mg/10 ml VIAL 1 mg/ml 10 ml VIAL (10 mg) IV SLOW PU ONE (08:23)
[2023-04-11] MEDS ORDERED: fentaNYL 100 mcg/2 ml 50 MCG/ML VIAL ONE (08:30)
[2023-04-11] MEDS ORDERED: Midazolam 5 mg/5 ml VIAL 1 mg/ml 5 ml VIAL (5 mg) ONE (08:30)
[2023-04-11] MEDS ORDERED: Iohexol 350 (CONTRAST) 100 ML PAK IV ONE (09:48)
[2023-04-11] MEDS ORDERED: oxyCODONE/Acetamin 5/325 mg TAB PO PRN (10:09)
[2023-04-11] MEDS: Enoxaparin 40 MG/0.4 ML SYR SUBCUT SCH (16:33)
[2023-04-11] MEDS: Insulin GLARGINE 100 un/ml 10 ml VIAL SUBCUT SCH (21:04)
[2023-04-12 05:06] LABS: ABS Eosinophils 0.2 10^3/uL (0.0-0.5); ABS Lymphocytes 1.2 10^3/uL (1.0-4.8); ABS Monocytes 0.5 10^3/uL (0.0-1.1); ABS Neutrophils 3.9 10^3/uL (1.5-7.6); ABS Nucleated RBC 0.01 10^3/ul; Eosinophil % 3.4 %; Hematocrit 40.9 % (38-53); Hemoglobin 14.2 g/dL (13.2-16.3); Lymphocyte % 20.1 %; Mean Corpuscular Hgb Conc 34.7 g/dL (31-36); Mean Corpuscular Volume 86.4 fL (80-97); Mean Platelet Volume 7.1 fL (7.5-11.2); Nucleated Red Blood Cells % 0.1 %/100WBC (0.0-0.8); Platelet Count 249 10^3/uL (150-450); Red Blood Count 4.73 10^6/uL (4.06-5.63); Red Cell Distribution Width 12.6 % (12-17); White Blood Count 5.9 10^3/uL (3.6-10.2)
[2023-04-12 05:07] LABS: INR 1.02 (0.83-1.13)
[2023-04-12 05:25] LABS: ALT 34 U/L (7-52); Albumin 3.7 g/dL (3.2-5.2); Albumin/Globulin Ratio 1.4 (1-3); Alkaline Phosphatase 72 U/L (35-149); Anion Gap 8 mmol/L (2-16); Blood Urea Nitrogen 21 mg/dL (6-24); CO2 Carbon Dioxide 22 mmol/L (22-32); Calcium 8.5 mg/dL (8.6-10.3); Chloride 102 mmol/L (101-111); Creatinine, Serum 0.98 mg/dL (0.67-1.17); Globulin 2.7 g/dL (2-4); Glucose 222 mg/dL (70-100); Sodium 132 mmol/L (135-145); Total Bilirubin 0.5 mg/dL (0.2-1.0); Total Protein 6.4 g/dL (6.4-8.9); eGFR CKD-EPI 85.6 (>60)
[2023-04-12] MEDS: Polyethylene Glycol 3350 17 GM PACKET PO SCH (08:13)
[2023-04-12 09:49] LABS: Potassium Redraw 4.2 mmol/L (3.5-5.0)
[2023-04-12] MEDS: Prasugrel 10 mg TAB (NF) PO SCH (10:51)
[2023-04-12 15:41] LABS: Osmolality Serum 289 mOsm/kg (275-295)
[2023-04-12 15:59] LABS: Ferritin 239.7 ng/mL (24-336)
[2023-04-12] MEDS: Enoxaparin 40 MG/0.4 ML SYR SUBCUT SCH (17:07)
[2023-04-12] MEDS: Insulin GLARGINE 100 un/ml 10 ml VIAL SUBCUT SCH (22:22)
[2023-04-13 07:08] LABS: ABS Basophils 0.1 10^3/uL (0.0-0.1); ABS Eosinophils 0.2 10^3/uL (0.0-0.5); ABS Lymphocytes 1.5 10^3/uL (1.0-4.8); ABS Monocytes 0.5 10^3/uL (0.0-1.1); ABS Neutrophils 4.1 10^3/uL (1.5-7.6); ABS Nucleated RBC 0.02 10^3/ul; Eosinophil % 3.4 %; Hematocrit 42.4 % (38-53); Hemoglobin 14.6 g/dL (13.2-16.3); Lymphocyte % 23.1 %; Mean Corpuscular Hemoglobin 29.5 pg (27-33); Mean Corpuscular Hgb Conc 34.4 g/dL (31-36); Mean Corpuscular Volume 85.7 fL (80-97); Nucleated Red Blood Cells % 0.3 %/100WBC (0.0-0.8); Platelet Count 277 10^3/uL (150-450); Red Blood Count 4.95 10^6/uL (4.06-5.63); Red Cell Distribution Width 12.5 % (12-17); White Blood Count 6.4 10^3/uL (3.6-10.2)
[2023-04-13 07:27] LABS: Calcium 8.6 mg/dL (8.6-10.3); Creatinine, Serum 0.91 mg/dL (0.67-1.17); Potassium 4.1 mmol/L (3.5-5.0); eGFR CKD-EPI 93.5 (>60)
[2023-04-13] MEDS: Polyethylene Glycol 3350 17 GM PACKET PO SCH (08:50)
[2023-04-13] MEDS: Prasugrel 10 mg TAB (NF) PO SCH (08:52)
[2023-04-13 11:24] VITALS: BP 112/66
== END 2023-04-13 12:18 | disposition home or self-care (01) | DRG 321 ==
LOC: ED 01:52 → EDHOLD 05:26 → SUATTDRO 06:36 → MEDTELE 12:25 → ICU 04-08 09:21 → MEDTELE 04-08 12:20 → ICU 04-11 10:12 → MEDTELE 04-12 11:59
PROVIDERS: ADMIT Internal Medicine; ATTEND Hospitalist